=== PATIENT | female | born 1975 | race African-American/Black ===

== ENCOUNTER 2016-09-09 07:40 | Emergency (ER) ==
[2016-09-09 07:50] VITALS: BP 140/80
--- NOTE | 2016-09-09 08:08 | PROVIDER DOCUMENTATION ---
HPI-EENT General - General Chief Complaint: Earache Stated Complaint: EARACHE Time Seen by Provider: 09/09/16 08:02 Source: patient Allergies/Adverse Reactions: Patient Allergies Allergy/AdvReac Type Severity Reaction Status Date / Time No Known Allergies Allergy Verified 09/09/16 07:50 Home Medications: Home Medication List Medication Instructions Recorded Confirmed Last Taken Type Hydrochlorothiazide 12.5 mg PO DAILY 06/09/15 03/14/16 02/21/16 09:00 History Esomeprazole [Nexium] 1 cap PO DAILY 02/07/16 03/14/16 02/21/16 History Albuterol Sulfate Inhaler 2 puff INH Q6H PRN PRN 02/08/16 03/14/16 Unknown History [Ventolin Hfa] Promethazine [Phenergan] 25 mg PO Q6H PRN PRN #20 tablet 05/03/16 Unknown Rx Acetaminophen with Codeine 1 each PO Q6H PRN PRN #14 tablet 09/09/16 Unknown Rx [Tylenol with Codeine #3 Tablet] Amoxicillin 875 mg PO BID #20 tablet 09/09/16 Unknown Rx Pseudoephedrine [Sudafed] 30 mg PO TID #20 tablet 09/09/16 Unknown Rx - History of Present Illness-EENT General Nature of Presenting Problem: hurtingn 5 days in left ear following uri hearing impaired EENT Location: reports: ear (L) Quality of Pain: reports: aching, throbbing Severity: reports: mild Onset/Duration: reports: 5 days ago Timing: reports: still present Prearrival Treatment: Initiated over the counter meds Associated Symptoms: reports: cough, nasal congestion/drainage Locality of Occurance: Home Similar Symptoms Previously?: No Review of Systems - Adult - REVIEW OF SYSTEMS - ADULT Constitutional: reports: no symptoms reported Eyes: reports: no symptoms reported Ears, Nose, Mouth & Throat: reports: ear pain Cardiovascular: reports: no symptoms reported Respiratory: reports: no symptoms reported Gastrointestinal: reports: no symptoms reported Genitourinary: reports: no symptoms reported Musculoskeletal: reports: no symptoms reported Integumentary: reports: no symptoms reported Neurological: reports: no symptoms reported Endocrine: reports: no symptoms reported Hematologic/Lymphatic: reports: no symptoms reported Allergic/Immunologic: reports: no symptoms reported Past History - Adult - PAST MEDICAL HISTORY-ADULT Review of Records: reports: Nursing Assessment Review, Medications Reviewed, Social history reviewed & non-contributory. Major Childhood Illnesses: reports: denies history Cardiovascular: reports: HTN Respiratory: reports: asthma Gastrointestinal: reports: GERD Endocrine/Immune: denies: Diabetes - PRIOR SURGERIES/PROCEDURES Surgical/Procedure History: reports: - PRIOR HOSPITALIZATIONS Prior Hospitalizations: reports: for other non-related - IMMUNIZATION STATUS Childhood Immunizations: See Nurse Assessment Flu Vaccine: See Nurse Assessment - FAMILY HISTORY Family History: reviewed, not pertinent Physical Exam- EENT - Physical Exam EENT Initial Vital Signs Reviewed: Yes General Appearance: appears well, alert Eye Exam: bilateral eye: normal inspection Ear Exam: left ear: TM dull, TM red, TM bulging Nasal Exam: normal inspection Throat Exam: normal mouth inspection Neck: supple Respiratory: no respiratory distress Cardiovascular: regular rate, rhythm Abdominal Exam: soft Lymphatic: no adenopathy Back Exam: normal inspection Extremity: normal range of motion Integumentary: normal color, normal turgor Neurologic: grossly normal Psych/Mental Status: oriented x 3 Departure - Departure Time of Disposition Order: 08:06 DIAGNOSIS: Otitis interna Qualifiers: Laterality: left Qualified Code(s): H83.02 - Labyrinthitis, left ear Disposition: HOME 01 Certified Medical Emergency: Emergent Condition: Stable Prescriptions: Acetaminophen with Codeine [Tylenol with Codeine #3 Tablet] 1 each PO Q6H PRN PRN #14 tablet PRN Reason: Pain Amoxicillin 875 mg PO BID #20 tablet Pseudoephedrine [Sudafed] 30 mg PO TID #20 tablet
== END 2016-09-09 08:16 | disposition home or self-care (01) ==
LOC: P.ED 07:40
DX: H83.02 Labyrinthitis, left ear (principal); H92.02 Otalgia, left ear; R05 Cough; R09.81 Nasal congestion; I10 Essential (primary) hypertension; J45.909 Unspecified asthma, uncomplicated; K21.9 Gastro-esophageal reflux disease without esophagitis; Z79.899 Other long term (current) drug therapy
CPT/HCPCS: 99281